=== PATIENT | female | born 1995 | race Two or more races ===

== ENCOUNTER 2019-12-25 13:44 | Inpatient (IN) | payer MEDICAID ==
[2019-12-25 14:33] LABS: APPEARANCE,URINE CLEAR; BILIRUBIN,URINE NEGATIVE (NEGATIVE); COLOR,URINE YELLOW; GLUCOSE, URINE NEGATIVE (NEGATIVE); KETONES,URINE NEGATIVE (NEGATIVE); LEUKOCYTE ESTERASE,URINE NEGATIVE (NEGATIVE); NITRITE,URINE NEGATIVE (NEGATIVE); PROTEIN,URINE 30 mg/dL (NEGATIVE); URINE SPECIFIC GRAVITY 1.016; UROBILINOGEN,URINE NEGATIVE mg/dL (<2.0)
[2019-12-25] MEDS ORDERED: RINGERS SOLUTION,LACTATED 1,000 ML IV ONE (14:36)
[2019-12-25] MEDS ORDERED: ONDANSETRON HCL INJ/PF 4 MG/2 ML SDV ONE ×2 (14:36→15:10)
[2019-12-25] MEDS ORDERED: NORMAL SALINE 250 ML IV PRN ×2 (14:39)
[2019-12-25 14:44] LABS: ABSOLUTE EOSINOPHILS # (AUTO) 0.2 10^3/uL (0.0-0.6); ABSOLUTE LYMPHOCYTES (AUTO) 1.9 10^3/uL (0.5-4.7); ABSOLUTE MONOCYTES (AUTO) 0.4 10^3/uL (0.1-1.4); ABSOLUTE NEUT (AUTO) 5.7 10^3/uL (1.7-8.2); BASOPHILS % (AUTO) 0.4 % (0-2); EOSINOPHILS % (AUTO) 1.9 % (0-6); HEMOGLOBIN 11.3 g/dL (12.0-15.5); LYMPHOCYTES % (AUTO) 22.8 % (13-45); MEAN CORPUSCULAR HEMOGLOBIN 29.5 pg (27.0-33.4); MEAN CORPUSCULAR HGB CONC 35.2 g/dL (32.0-36.0); MEAN CORPUSCULAR VOLUME 84 fl (80-97); MONOCYTES % (AUTO) 4.7 % (3-13); PLATELET COUNT 194 10^3/uL (150-450); RED BLOOD COUNT 3.82 10^6/uL (3.72-5.28); RED CELL DISTRIBUTION WIDTH 15.1 % (11.5-14.0); SEGMENTED NEUTROPHILS % (AUTO) 70.2 % (42-78); TOTAL CELLS COUNTED % (AUTO) 100 %; WHITE BLOOD COUNT 8.1 10^3/uL (4.0-10.5)
[2019-12-25 14:50] LABS: INTERNATIONAL RATION (INR) 0.95; PROTHROMBIN TIME 12.9 SEC (11.4-15.4)
[2019-12-25 14:51] LABS: FIBRINOGEN 470 mg/dL (209-497); PARTIAL THROMBOPLASTIN TIME 28.5 SEC (23.5-35.8)
[2019-12-25 14:55] LABS: URINE AMPHETAMINES SCREEN NEGATIVE; URINE BARBITURATES SCREEN NEGATIVE; URINE BENZODIAZEPINES SCREEN NEGATIVE; URINE COCAINE SCREEN NEGATIVE; URINE METHADONE SCREEN NEGATIVE; URINE PHENCYCLIDINE SCREEN NEGATIVE
[2019-12-25] MEDS ORDERED: AZITHROMYCIN 500 MG in DEXTROSE 5%-WATER 250 ML IV PRN (14:55)
[2019-12-25] MEDS ORDERED: CITRIC ACID/SODIUM CITRATE ORAL SOLN 15 ML UDCUP ONE (14:55)
[2019-12-25] MEDS ORDERED: AZITHROMYCIN INJ 500 MG VIAL IV ONE (14:56)
[2019-12-25] MEDS ORDERED: MISOPROSTOL 0.2 MG TABLET ONE (14:57)
[2019-12-25] MEDS ORDERED: METHYLERGONOVINE MALEATE INJ/PF 0.2 MG/1 ML AMPULE ONE (14:57)
[2019-12-25] MEDS ORDERED: CARBOPROST TROMETHAMINE INJ 250 MCG/1 ML AMPULE ONE (14:58)
[2019-12-25] MEDS ORDERED: ONDANSETRON HCL INJ/PF 4 MG/2 ML SDV IV ONE (14:58)
[2019-12-25] MEDS ORDERED: BETAMET ACET/BETAMET NA INJ 6 MG/1 ML ONE (15:04)
--- NOTE | 2019-12-25 15:04 | RADIOLOGY REPORT (SQ) ---
EXAM DESCRIPTION: U/S OB LIMITED IMAGES COMPLETED DATE/TIME: 12/25/2019 2:41 pm REASON FOR STUDY: placenta well being r/o abruption COMPARISON: None. TECHNIQUE: Limited transabdominal grayscale ultrasound for evaluation of specific requested obstetri kaitlynn parameters. LIMITATIONS: None. FINDINGS: CERVICAL LENGTH: Not measured. SAPNA: Not measured. Cm. FHR: 137 beats per minute. PRESENTATION: Cephalic. PLACENTA: Placenta is anterior. There is an oval area of slightly increased echogenicity along the a nterior margin of the placenta that measures about 2 x 6 cm. ANATOMY: Not assessed OTHER: No other significant findings. IMPRESSION: Living intrauterine gestation. There is an area of slightly increased echogenicity georgie g the anterior margin of the placenta. It is possible that this represents a mature hematoma from an abruption. Follow-up as clinically indicated. Trimester of : Third trimester - 28 weeks to delivery. TECHNICAL DOCUMENTATION: JOB ID: [id number] 2010 [employer]- All Rights Reserved Reading location - IP/workstation name: [email or web address]
--- NOTE | 2019-12-25 15:07 | L&D Progress Notes ---
PROGRESS NOTES Datetime Report Generated by CPN: 12/25/2019 15:07 PROGRESS NOTE Comment: US shows an abruption on ultrasound. This was discussed with the patient and family. We will need to proceed with a c section. Discussed with Dr Nicole. LAST VAGINAL EXAM-NURSING Nursing Exam Dilitation: closed Nursing Exam Effacement: long SIGNATURE SIGNATURE: [id number] Signature: with User ID: [email or web address]
[2019-12-25 15:08] LABS: URINE MARIJUANA (THC) SCREEN UNCONFIRMED POSITIVE
[2019-12-25] MEDS ORDERED: FENTANYL CITRATE INJ/PF 100 MCG/2 ML AMPUL ONE (15:09)
[2019-12-25] MEDS ORDERED: OXYTOCIN 10 UNIT/ML VIAL ONE ×2 (15:09→15:45)
[2019-12-25] MEDS ORDERED: KETOROLAC TROMETHAMINE INJ/PF 30 MG/1 ML SDV ONE ×2 (15:09→21:31)
[2019-12-25] MEDS ORDERED: PHENYLEPHRINE HCL INJ/PF 10 MG/1 ML SDV ONE (15:09)
[2019-12-25] MEDS ORDERED: OXYTOCIN/0.9 % SODIUM CHLORIDE 30 UNIT/500 ML RTUINJ ONE (15:10)
[2019-12-25] MEDS ORDERED: MIDAZOLAM 2 MG/2 ML INJ ONE ×2 (15:10→17:17)
[2019-12-25] MEDS ORDERED: ACETAMINOPHEN 1,000 MG/100 ML RTUPB IV ONE (15:10)
[2019-12-25 15:14] LABS: BACTERIA (WET MOUNT) 4+ BACTERIA SEEN; EPITHELIALS (WET MOUNT) 3+ EPITHELIALS SEEN; RBCS (WET MOUNT) 1+ RBCS SEEN; T.VAGINALIS (WET MOUNT) NO TRICHOMONAS SEEN; WBCS (WET MOUNT) 4+ WBCS SEEN; YEAST (WET MOUNT) NO YEAST SEEN
[2019-12-25] MEDS ORDERED: BETAMET ACET/BETAMET NA INJ 6 MG/1 ML IM ONE (15:15)
[2019-12-25] MEDS ORDERED: CLINDAMYCIN 900 MG/D5W RTU 900 MG/50 ML RTUPB IV ONE (15:27)
[2019-12-25] MEDS ORDERED: MISOPROSTOL 0.2 MG TABLET PR ONE (15:37)
[2019-12-25 16:11] LABS: ALBUMIN 3.2 g/dL (3.5-5.0); ALKALINE PHOSPHATASE 137 U/L (38-126); ANION GAP 8 (5-19); ASPARTATE AMINO TRANSFERASE 20 U/L (14-36); BILIRUBIN,DIRECT 0.2 mg/dL (0.0-0.4); BILIRUBIN,TOTAL 0.4 mg/dL (0.2-1.3); BLOOD UREA NITROGEN 4 mg/dL (7-20); CARBON DIOXIDE 22 mmol/L (22-30); CHLORIDE 106 mmol/L (98-107); GLUCOSE 87 mg/dL (75-110); POTASSIUM 3.8 mmol/L (3.6-5.0); TOTAL PROTEIN 5.9 g/dL (6.3-8.2); URIC ACID 3.7 mg/dL (2.5-6.2)
[2019-12-25 16:23] LABS: UR PRO/CREAT RATIO RESULT 0.1 mg/mg (0.0-0.2); URINE CREATININE 156.6 mg/dL (16-327); URINE PROTEIN 9.3 mg/dL (<12)
[2019-12-25] MEDS ORDERED: OXYTOCIN/0.9 % SODIUM CHLORIDE 30 UNIT/500 ML RTUINJ IV PRN (16:27)
[2019-12-25] MEDS ORDERED: DIPH/PERTUSS(ACELL)/TETANUS VAC/PF 0.5 ML SYR (>=10YO) IM PRN (16:27)
[2019-12-25] MEDS ORDERED: ACETAMINOPHEN 325 MG TABLET PO PRN (16:27)
[2019-12-25] MEDS ORDERED: ACETAMINOPHEN 1,000 MG/100 ML RTUPB IV PRN (16:27)
[2019-12-25] MEDS ORDERED: SIMETHICONE 80 MG TAB.CHEW PO PRN (16:27)
[2019-12-25] MEDS ORDERED: MEASLES,MUMPS&RUBELLA VACC/PF 0.5 ML VIAL SUBCUT PRN (16:27)
[2019-12-25] MEDS ORDERED: RINGERS SOLUTION,LACTATED 1,000 ML IV PRN (16:27)
[2019-12-25 16:41] LABS: CHLAM PCR NOT DETECTED (NOT DETECT)
[2019-12-25] MEDS ORDERED: MEPERIDINE HCL/PF INJ 25 MG/1 ML DISP.SYRIN ONE (16:48)
[2019-12-25] MEDS ORDERED: MAGNESIUM SULFATE 20 GM/500 ML RTUINJ IV PRN (17:00)
[2019-12-25] MEDS ORDERED: MAGNESIUM SULFATE 4 GM/100 ML RTUPB IV PRN (17:00)
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
[2019-12-25] MEDS ORDERED: LORAZEPAM INJ 2 MG/1 ML VIAL ONE (17:09)
[2019-12-25] MEDS ORDERED: LORAZEPAM INJ 2 MG/1 ML VIAL IV ONE (17:11)
[2019-12-25] MEDS ORDERED: MAGNESIUM SULFATE 20 GM/500 ML RTUINJ IV ONE (17:11)
[2019-12-25] MEDS ORDERED: MAGNESIUM SULFATE 4 GM/100 ML RTUPB IV ONE ×2 (17:11)
[2019-12-25 17:47] LABS: ABSOLUTE EOSINOPHILS # (AUTO) 0.1 10^3/uL (0.0-0.6); ABSOLUTE LYMPHOCYTES (AUTO) 1.2 10^3/uL (0.5-4.7); ABSOLUTE MONOCYTES (AUTO) 0.2 10^3/uL (0.1-1.4); ABSOLUTE NEUT (AUTO) 6.6 10^3/uL (1.7-8.2); BASOPHILS % (AUTO) 0.3 % (0-2); EOSINOPHILS % (AUTO) 0.9 % (0-6); HEMATOCRIT 30.9 % (36.0-47.0); HEMOGLOBIN 10.7 g/dL (12.0-15.5); LYMPHOCYTES % (AUTO) 14.8 % (13-45); MEAN CORPUSCULAR HEMOGLOBIN 29.3 pg (27.0-33.4); MEAN CORPUSCULAR HGB CONC 34.7 g/dL (32.0-36.0); MEAN CORPUSCULAR VOLUME 84 fl (80-97); MONOCYTES % (AUTO) 2.1 % (3-13); PLATELET COUNT 179 10^3/uL (150-450); RED BLOOD COUNT 3.67 10^6/uL (3.72-5.28); RED CELL DISTRIBUTION WIDTH 14.8 % (11.5-14.0); SEGMENTED NEUTROPHILS % (AUTO) 81.9 % (42-78); TOTAL CELLS COUNTED % (AUTO) 100 %; WHITE BLOOD COUNT 8.1 10^3/uL (4.0-10.5)
[2019-12-25 17:54] LABS: INTERNATIONAL RATION (INR) 1.04; PROTHROMBIN TIME 13.8 SEC (11.4-15.4)
[2019-12-25 17:55] LABS: FIBRINOGEN 425 mg/dL (209-497); PARTIAL THROMBOPLASTIN TIME 29.2 SEC (23.5-35.8)
--- NOTE | 2019-12-25 18:00 | Operative Report ---
Operative Report DATE OF SURGERY: 12/25/19 PREOPERATIVE DIAGNOSIS: 31+6ega, , Abdominal pain, Abruption, Vaginal Bl eeding. POSTOPERATIVE DIAGNOSIS: DINO - abruption OPERATION: Primary Section SURGEON: MANUELA FREEMAN ANESTHESIA: Spinal TISSUE REMOVED OR ALTERED: placenta and cord sent to pathology COMPLICATIONS: Uterine atony resolved with Pitocin and Cytotec ESTIMATED BLOOD LOSS: 800 QUANTITATIVE BLOOD LOSS: 940 INTRAOPERATIVE FINDINGS: Baby FINA delivered at 1536, APgars 8/9, weight 4#. Copious amounts of bleeding noted at uterine incision consistent with abruption. Uterine atony resolved after additional Dose of Pitocin. Cytotec 1000mcg given per rectum. PROCEDURE: Anesthesia provider: [Jacqueline Brown BUILDING SERVICES COORDINATOR] Urine output: [150ml] IV fluids: [800ml] Indications: [24yo at 31+6ega presents via EMS from [facility] appointment to transfer care from [place]. Upon arrival patient not to have gushes of blood with reassuring FHR for gestational age and was assessed by Dr. Akers and US obtained which showed active abruption. She was consented for Urgent Primary section due to abruption and NICU team was notified. The risks, benefits, alternatives wre reviewed. No e/o HTN and PIH labs within normal limits. ] Procedure: The patient was taken to the operating room where spinal anesthesia was obtained and found to be adequate. She was then prepped and draped in the normal sterile fashion and placed in the dorsal supine position with a leftward tilt. A Pfannenstiel skin incision was then made and carried through to the underlying layers of the fascia with the scalpel. The fascia was incised in the midline and the incision extended laterally with the Arndt scissors. The superior aspect of the fascial incision was then grasped with Tino clamps elevated and the underlying rectus muscles dissected off [bluntly]. Attention was then turned to the inferior aspect of the fascial incision which in a similar fashion was grasped, tented up with Tino clamps, and the rectus muscles dissected off [bluntly]. The rectus muscles were then in the midline and the peritoneum at the amount identified and entered [bluntly]. The peritoneal incision was then extended superiorly and inferiorly with good visualization of the bladder. The bladder blade was inserted and the vesicouterine peritoneum identified grasped with [employer] pickups and entered sharply with the Metzenbaum scissors. This incision was then extended laterally with the Metzenbaum scissors and a bladder flap created digitally. The bladder blade was then reinserted and the lower uterine segment incised in a transverse fashion with the scalpel. The uterine incision was then extended bluntly. Copious bleeding noted prior to the baby and spontaneous delivery of baby and quick delivery of placenta followed shortly. The bladder blade was removed and the infant's head was delivered from cephalic presentation atraumatically. The nose and mouth were suctioned and the cord doubly clamped and cut. And the infant was handed off to waiting pediatricic staff. The placenta was then delivered spontaneously and the uterus exteriorized and cleared of all clots and debris. The uterine incision was then repaired with 1- 0 Vicryl in a running locked fashion. A second layer of the same suture was used to obtain hemostasis via imbrication of the initial layer. The bladder flap was then repaired with 3-0 chromic in a running fashion. The uterus was returned to the patient's abdomen and Surgicel placed for additional hemostasis. The gutters were cleared of all clots and debris. All operative sites were noted to be hemostatic. The fascia was reapproximated with 0 Vicryl in a running fashion from each lateral edge to the midline. The skin was closed with 3-0 Monocryl in a running subcuticular fashion with overlying Exofin for additional dressing as well as wound closure. The patient tolerated the procedure well. Sponge lap needle and instrument counts are correct times 2. Zithromax and 900mg of Clindamycin were given prior to skin incision. The patient was taken to the recovery area awake and in stable condition.
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
[2019-12-25 18:12] LABS: ALBUMIN 2.9 g/dL (3.5-5.0); ALKALINE PHOSPHATASE 128 U/L (38-126); ANION GAP 7 (5-19); ASPARTATE AMINO TRANSFERASE 21 U/L (14-36); BILIRUBIN,DIRECT 0.2 mg/dL (0.0-0.4); BILIRUBIN,TOTAL 0.4 mg/dL (0.2-1.3); BLOOD UREA NITROGEN 4 mg/dL (7-20); CALCIUM 8.3 mg/dL (8.4-10.2); CARBON DIOXIDE 22 mmol/L (22-30); CHLORIDE 104 mmol/L (98-107); POTASSIUM 4.3 mmol/L (3.6-5.0); TOTAL PROTEIN 5.3 g/dL (6.3-8.2)
[2019-12-25 18:19] LABS: GLUCOSE 66 mg/dL (75-110)
--- NOTE | 2019-12-25 18:21 | RADIOLOGY REPORT (SQ) ---
EXAM DESCRIPTION: CT HEAD WITHOUT IMAGES COMPLETED DATE/TIME: 12/25/2019 6:05 pm REASON FOR STUDY: blurred vision, headache, loss of responsiveness COMPARISON: None. TECHNIQUE: Axial images acquired through the brain without intravenous contrast. Images reviewed wi th bone, brain and subdural windows. Additional sagittal and coronal reconstructions were generated. Images stored on PACS. All CT scanners at this facility use dose modulation, iterative reconstruction, and/or weight based d osing when appropriate to reduce radiation dose to as low as reasonably achievable (ALARA). [facility]: Dose Right [facility]: CareDose [facility]: Dose Right [facility]: Teradose 4D [facility]: Boastify RADIATION DOSE: CT Rad equipment meets quality standard of care and radiation dose reduction techniq ues were employed. CTDIvol: 53.2 mGy. DLP: 937 mGy-cm. mGy. LIMITATIONS: None. FINDINGS: VENTRICLES: Normal size and contour. CEREBRUM: No masses. No hemorrhage. No midline shift. No evidence for acute infarction. Normal gra y/white matter differentiation. No areas of low density in the white matter. CEREBELLUM: No masses. No hemorrhage. No alteration of density. No evidence for acute infarction. EXTRAAXIAL SPACES: No fluid collections. No masses. ORBITS AND GLOBE: No intra- or extraconal masses. Normal contour of globe without masses. CALVARIUM: No fracture. PARANASAL SINUSES: No fluid or mucosal thickening. SOFT TISSUES: No mass or hematoma. OTHER: No other significant finding. IMPRESSION: NORMAL BRAIN CT WITHOUT CONTRAST. EVIDENCE OF ACUTE STROKE: NO. COMMENT: Quality ID # [id number]: Final reports with documentation of one or more dose reduction techniques (e.g., Automated exposure control, adjustment of the mA and/or kV according to patient size, use of iterative reconstruction technique) TECHNICAL DOCUMENTATION: JOB ID: [id number] 2010 [employer]- All Rights Reserved Reading location - IP/workstation name: [email or web address]
[2019-12-25] MEDS ORDERED: HYDROMORPHONE HCL INJ/PF 2 MG/ML AMPULE ONE (18:30)
[2019-12-25] MEDS: HYDROMORPHONE HCL INJ/PF 2 MG/ML AMPULE IV PRN (18:33)
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
--- NOTE | 2019-12-25 19:10 | Warning Signs in Babies ---
VOD Warning Signs Datetime Report Generated by [facility]: 12/25/2019 19:10 VOD#608 -Warning Signs in Babies: Needs to be viewed. (12/25/2019 13:51:Calista Turner RN)
[2019-12-25] MEDS: DOCUSATE SODIUM 100 MG CAPSULE PO SCH (19:27)
[2019-12-25] MEDS: LEVETIRACETAM 500 MG TABLET PO SCH (20:04)
[2019-12-25] MEDS: OXYCODONE-ACETAMINOPHEN 5-325 MG TABLET PO PRN (20:10)
[2019-12-25] MEDS ORDERED: OXYCODONE-ACETAMINOPHEN 5-325 MG TABLET ONE (20:10)
[2019-12-25] MEDS ORDERED: PROMETHAZINE HCL INJ 25 MG/1 ML VIAL ONE (20:17)
[2019-12-25] MEDS: PROMETHAZINE HCL INJ 25 MG/1 ML VIAL IV PRN (20:23)
[2019-12-25] MEDS: LIDOCAINE 5% (700 MG) TRANSDERMAL ADH..PATCH TP SCH (21:08)
[2019-12-25] MEDS: KETOROLAC TROMETHAMINE INJ/PF 30 MG/1 ML SDV IV SCH (21:35)
[2019-12-26] MEDS ORDERED: HYDROMORPHONE HCL INJ/PF 2 MG/ML AMPULE ONE (01:09)
[2019-12-26] MEDS: HYDROMORPHONE HCL INJ/PF 2 MG/ML AMPULE IV PRN (01:12)
[2019-12-26] MEDS ORDERED: OXYCODONE-ACETAMINOPHEN 5-325 MG TABLET ONE ×2 (04:22→09:37)
[2019-12-26] MEDS: IBUPROFEN 800 MG TABLET PO SCH ×4 (04:24→17:50)
[2019-12-26] MEDS: OXYCODONE-ACETAMINOPHEN 5-325 MG TABLET PO PRN ×2 (04:25→21:12)
[2019-12-26] MEDS ORDERED: MAGNESIUM SULFATE 4 GM/100 ML RTUPB IV PRN (05:27)
[2019-12-26] MEDS ORDERED: PROMETHAZINE HCL INJ 25 MG/1 ML VIAL ONE (06:23)
[2019-12-26] MEDS ORDERED: KETOROLAC TROMETHAMINE INJ/PF 30 MG/1 ML SDV ONE (06:23)
[2019-12-26] MEDS: KETOROLAC TROMETHAMINE INJ/PF 30 MG/1 ML SDV IV SCH ×2 (06:29→16:47)
[2019-12-26] MEDS: PROMETHAZINE HCL INJ 25 MG/1 ML VIAL IV PRN (06:30)
[2019-12-26 07:41] LABS: HEMATOCRIT 31.1 % (36.0-47.0); HEMOGLOBIN 10.9 g/dL (12.0-15.5); MEAN CORPUSCULAR HEMOGLOBIN 29.4 pg (27.0-33.4); MEAN CORPUSCULAR VOLUME 84 fl (80-97); PLATELET COUNT 192 10^3/uL (150-450); RED CELL DISTRIBUTION WIDTH 14.9 % (11.5-14.0); WHITE BLOOD COUNT 14.3 10^3/uL (4.0-10.5)
--- NOTE | 2019-12-26 08:26 | Birth Certificate Data ---
Cert Data Datetime Report Generated by CPN: 12/26/2019 08:26 CERTIFICATE DATA 47a. Care: Yes (12/25/2019 13:51:Lexus Nicole RN) 47b. Date of First Visit: 06/25/2019 00:00 (12/25/2019 13:51:Lexus Nicole RN) 47c. Date of Last Visit: 12/01/2019 00:00 (12/25/2019 13:51:Lexus Nicole RN) 47d. Number of Visits: 3 (12/25/2019 13:51:Lexus Nicole RN) 48a. Number of Prev Live Births: 4 (12/25/2019 13:51:Calista Turner RN) 48b. Now Livin (12/25/2019 13:51:Calista Turner RN) 48c. Live Births Now : 0 (12/25/2019 13:51:QS system process) 48e. Losses: 1 (12/25/2019 13:51:Calista Turner RN) RISK FACTORS IN THIS 49a. Diabetes: Yes (12/25/2019 13:51:Calista Turner RN) Type of Diabetes: Gestational Diabetes (12/25/2019 13:51:Calista Turner RN) 49b. Hypertension: Yes (12/25/2019 13:51:Calista Turner RN) Type of Hypertension: Gestational (PIH, Pre-eclampsia) (12/25/2019 13:51:Calista Turner RN) 49c. Previous Births: 0 (12/25/2019 13:51:Calista Turner RN) 49d. Stillborns: No (12/25/2019 13:51:Calista Turner RN) 49d. IUGR: No (12/25/2019 13:51:Calista Turner RN) 49e. Infertility Treatment: No (12/25/2019 13:51:Calista Turner RN) 49f. Previous Cesareans: 0 (12/25/2019 13:51:Calista Turner RN) Mother's Height 50b. Height Inches: 64 (12/25/2019 20:31:QS system process) Mother's Weight 51a. Pre- Weight (lbs): 256 (12/25/2019 13:51:Calista Turner RN) 51b. Weight at Delivery (lbs): 207 (12/25/2019 20:31:QS system process) 52. Dt Last Normal Menses Began: 05/16/2019 00:00 (12/25/2019 13:51:Lexus Nicole RN) Infections Present/Treated 53a. Gonorrhea: Yes (12/25/2019 13:51:Lexus Nicole RN) Results this Hospital Visit : Negative (12/25/2019 13:51:Jessenia Lucio RN) 53b. Syphilis: No (12/25/2019 13:51:Calista Turner RN) 53c. Chlamydia: Yes (12/25/2019 13:51:Calista Turner RN) Results this Hospital Visit: Negative (12/25/2019 13:51:Jessenia Lucio RN) 53d. Hepatitis B: No (12/25/2019 13:51:Calista Turner RN) Results this Hospital Visit: Negative (12/25/2019 13:51:Jessenia Lucio RN) 53h. Mother Tested for HBsAG: Yes (12/25/2019 13:51:Jessenia Lucio RN) 53i. Date Tested: 12/01/2019 00:00 (12/25/2019 13:51:Jessenia Lucio RN) 53j. Test Result: Negative (12/25/2019 13:51:Jessenia Lucio RN) Obstetric Procedures 54a, b, c. Obstetric Procedures: Ultrasound (12/25/2019 13:51:Lexus Nicole RN) Cigarette Smoking Cigarette Smoking: Never Smoker. [id number] (12/25/2019 13:51:Calista Turner RN) Onset of Labor 56a. PROM >12 Hrs: 0.02 (12/25/2019 13:51:QS system process) 57a. Induction of Labor: N/A (12/25/2019 13:51:Lexus Nicole RN) 57c. Non-Vertex Presentation A: Vertex (12/25/2019 13:51:Lexus Nicole RN) 57d. Steroids - Lung Mat: Partial Course (12/25/2019 13:51:Lexus Nicole RN) 57d. Steroids - Lung Mat: Imminent Delivery (12/25/2019 13:51:Lexus Nicole RN) 57e. Antibiotics During Labor: 12/25/2019 15:03 (12/25/2019 13:51:Hong Huang RN) 57f. Mat [place] or Temp >100.4: 98.7 (Annotations: Data stored by [employer] on behalf of user) (12/25/2019 13:51:Jessenia Lucio RN) 57g. Moderate/Heavy Meconium: Clear (12/25/2019 13:51:Hong Huang RN) 57h. Intolerance of Labor: Abruptio Placenta (12/25/2019 13:51:Lexus Nicole RN) : N/A (12/25/2019 13:51:Lexus Nicole RN) 57i. Epidural/Spinal Anesthesia: None (12/25/2019 13:51:Lexus Nicole RN) Method of Delivery 58a. Forceps - Unsuccessful A: N/A (12/25/2019 13:51:Lexus Nicole RN) 58b. Vacuum - Unsuccessful A: N/A (12/25/2019 13:51:Lexus Nicole RN) 58c. Presentation at 58c. Presentation at - A : Vertex (12/25/2019 13:51:Lexus Nicole RN) 58c. Presentation at - A : N/A (12/25/2019 13:51:Lexus Nicole RN) 58c. Presentation at - A : Cephalic (12/25/2019 13:51:Lexus Nicole RN) Final Route and Method of Del 58d. Baby A Route/Delivery: (12/25/2019 13:51:Lexus Nicole RN) 58e. Trial of Labor Attempted: No (12/25/2019 13:51:Lexus Nicole RN) 58e. Trial of Labor Attempted A: N/A (12/25/2019 13:51:Lexus Nicole RN) 58e. Trial of Labor Attempted B: N/A (12/25/2019 13:51:Lexus Nicole RN) Maternal Morbidity 59b. 3rd or 4th Degree Lacs: None (12/25/2019 13:51:Lexus Nicole RN) 59b. 3rd or 4th Degree Lacs: N/A (12/25/2019 13:51:Lexus Nicole RN) Birthweight Baby A: 1809 (12/25/2019 13:51:Hong Huang RN) 60a. Pounds : 4 (12/25/2019 13:51:QS system process) 60b. Ounces: 0 (12/25/2019 13:51:QS system process) 61. GA at Delivery Baby A: 31.6 (12/25/2019 13:51:Lexus Nicole RN) : - <34 Weeks (12/25/2019 13:51:QS system process) 62a. 5 Minute Baby A: 9 (12/25/2019 13:51:QS system process)
--- NOTE | 2019-12-26 08:26 | Delivery Summary ---
Del Sum A-C Datetime Report Generated by CPN: 12/26/2019 08:26 DELIVERY PERSONNEL DELIVERY PERSONNEL: [id number] Delivery Doctor:: Alondra Alicea MD Anesthesiologist:: Dr. Soler AIRLINE COUNTER AGENT:: Jacqueline Lovett CRNA Slip Mixer:: Calista Turner RN Neonatal Nurse Practitioner:: KASIA Costa Nursery Nurse:: Babita August RN Nursery Nurse:: Mercedez Shepherd RN Can Doffer/INFORMATION STRATEGIST: ST Russel Can Doffer/INFORMATION STRATEGIST: Ayanna Carrasquillo CST Additional Personnel: : Hong Huang RN MATERNAL INFORMATION Delivery Anesthesia: Spinal Medications After Delivery: Pitocin 30 Units in 500ml NS/D5W; Cytotec 1000mcg Per Rectum/Vagina Meds After Delivery Comment: cytotec 1000mcg pr Delivery QBL: 940 Maternal Complications: Abruptio Placenta LABOR SUMMARY EDC: 02/20/2020 00:00 No. Babies in Womb: 1 Attempted: No Labor Anesthesia: None LABOR INFORMATION Reason for Induction: Not Applicable Oxytocin: N/A Group B Beta Strep: unknown (Annotations: Data stored by [facility] on behalf of user) Antibiotics # of Doses: 2 Antibiotics Time of Last Dose: 12/25/2019 15:03 Name of Antibiotic Given: Zithromax and Cleocin Steroids Given: Partial Course Reason Steroids Not Administered: Imminent Delivery MEMBRANES Membranes Rupture Method: Artificial Rupture of Membranes: 12/25/2019 15:35 Length of Rupture (hr): 0.02 Amniotic Fluid Color: Clear Amniotic Fluid Amount: Moderate Amniotic Fluid Odor: Normal STAGES OF LABOR Stage 3 hr: 0 Stage 3 min: 1 VAGINAL DELIVERY Episiotomy: None Laceration #1: None Laceration Extension #1: N/A Laceration Repair: Not Applicable Sponge Count Correct: N/A Sharps Count Correct: N/A CSECTION DELIVERY Primary Indication: Abruptio Placenta Secondary Indication: N/A CSection Urgency: Emergency CSection Incidence: Primary Labor: N/A Elective: Nonelective CSection Incision: Lower Uterine Transverse BABY A INFORMATION Infant Delivery Date/Time: 12/25/2019 15:36 Method of Delivery: Nurse Controlled Delivery: No Born in Route : No : N/A Forceps: N/A Vacuum Extraction: N/A Shoulder Dystocia : No PRESENTATION/POSITION BABY A Presentation: Cephalic Cephalic Presentation: Vertex Breech Presentation: N/A PLACENTA INFORMATION BABY A Placenta Delivery Time : 12/25/2019 15:37 Placenta Method of Delivery: Manual Removal Placenta Status: Delivered SCORES BABY A Heart Rate 1 min: >100 bpm Resp Effort 1 min: Good Cry Reflex Irritability 1 min: Cough or Sneeze or Pulls Away Muscle Tone 1 min: Active Motion Color 1 min: Blue/Pale Resuscitation Effort 1 min: Tactile Stimulation SCORE 1 MIN: 8 Heart Rate 5 min: >100 bpm Resp Effort 5 min: Good Cry Reflex Irritability 5 min: Cough or Sneeze or Pulls Away Muscle Tone 5 min: Active Motion Color 5 min: Body [place], Extremities Blue Resuscitation Effort 5 min: N/A SCORE 5 MIN: 9 INFORMATION BABY A Gestational Age at Delivery: 31.6 Gestational Status: - <34 Weeks Outcome : Liveborn Condition : Stable Infant Sex: Male IDENTIFICATION BABY A Verification Date/Time: 12/25/2019 15:37 ID Band Number: [id number] Mother's Name Verified: Yes Infant RN Verifying : CSedgwick,RN Additional Verifying Personnel: TMartin,RN WEIGHT/LENGTH BABY A Birthweight (gm): 1809 Infant Weight (lb): 4 Weight (oz): 0 Infant Length (in): 17.00 Length (cm): 43.18 CORD INFORMATION BABY A No. Cord Vessels: 3 Nuchal Cord : N/A Cord Blood Taken: Yes-For Eval (Mom's Blood Type - or O+) Infant Suction: Mouth; Nose ASSESSMENT BABY A Skin to Skin: No Skin to Skin Time (min): 0 Casino Floorperson/ALS Called : Yes Infant Care By: A [place], RN Transferred To: NICU BABY B INFORMATION : N/A SIGNATURES : I was personally available for consultation and serving as supervising physician for the MLP.
--- NOTE | 2019-12-26 09:45 | PDOC PROGRESS REPORT ---
Subjective Progress Note for:: 12/26/19 Subjective:: Patient is doing very well. Ambulating without difficulty. Pain well controlled. She has had no further episodes of her pseudo-seizure like activity. Reason For Visit: ABRUPTION Physical Exam - Physical Exam Vital Signs: Intake & Output 12/25/19 12/26/19 12/27/19 06:59 06:59 06:59 Weight 94.347 kg General appearance: PRESENT: no acute distress, cooperative GI/Abdominal exam: PRESENT: soft, tenderness - appropriate for post operative state. Incision c/d/intact Result Laboratory Results: 12/26/19 07:26 12/25/19 17:40 12/25/19 12/25/19 12/25/19 14:16 14:37 14:37 WBC 8.1 RBC 3.82 Hgb 11.3 L Hct 32.0 L MCV 84 MCH 29.5 MCHC 35.2 RDW 15.1 H Plt Count 194 Seg Neutrophils % 70.2 Sodium Potassium Chloride Carbon Dioxide Anion Gap BUN Creatinine Est GFR ( Amer) Glucose Uric Acid Calcium Total Bilirubin AST Alkaline Phosphatase Total Protein Albumin TSH Urine Color YELLOW Urine Appearance CLEAR Urine pH 7.0 Ur Specific [place] 1.016 Urine Protein 30 H Urine Glucose (UA) NEGATIVE Urine Ketones NEGATIVE Urine Blood NEGATIVE Urine Nitrite NEGATIVE Ur Leukocyte Esterase NEGATIVE Urine WBC (Auto) 1 Urine RBC (Auto) 7 Blood Type O POSITIVE Antibody Screen NEGATIVE 12/25/19 12/25/19 12/25/19 14:57 16:36 17:40 WBC 8.1 RBC 3.67 L Hgb 10.7 L Hct 30.9 L MCV 84 MCH 29.3 MCHC 34.7 RDW 14.8 H Plt Count 179 Seg Neutrophils % 81.9 H Sodium 136.0 L Potassium 3.8 Chloride 106 Carbon Dioxide 22 Anion Gap 8 BUN 4 L Creatinine 0.46 L Est GFR ( Amer) > 60 Glucose 87 Uric Acid 3.7 Calcium 9.0 Total Bilirubin 0.4 AST 20 Alkaline Phosphatase 137 H Total Protein 5.9 L Albumin 3.2 L TSH 0.54 Urine Color Urine Appearance Urine pH Ur Specific [place] Urine Protein Urine Glucose (UA) Urine Ketones Urine Blood Urine Nitrite Ur Leukocyte Esterase Urine WBC (Auto) Urine RBC (Auto) Blood Type Antibody Screen 12/25/19 12/26/19 17:40 07:26 WBC 14.3 H RBC 3.70 L Hgb 10.9 L Hct 31.1 L MCV 84 MCH 29.4 MCHC 35.0 RDW 14.9 H Plt Count 192 Seg Neutrophils % Sodium 133.1 L Potassium 4.3 Chloride 104 Carbon Dioxide 22 Anion Gap 7 BUN 4 L Creatinine 0.47 L Est GFR ( Amer) > 60 Glucose 66 L Uric Acid Calcium 8.3 L Total Bilirubin 0.4 AST 21 Alkaline Phosphatase 128 H Total Protein 5.3 L Albumin 2.9 L TSH Urine Color Urine Appearance Urine pH Ur Specific [place] Urine Protein Urine Glucose (UA) Urine Ketones Urine Blood Urine Nitrite Ur Leukocyte Esterase Urine WBC (Auto) Urine RBC (Auto) Blood Type Antibody Screen Impressions: Obstetrics Ultrasound 12/25/19 00:00 IMPRESSION: Living intrauterine gestation. There is an area of slightly increased echogenicity along the anterior margin of the placenta. It is possible that this represents a mature hematoma from an abruption. Follow-up as clinically indicated. Trimester of : Third trimester - [address] delivery. Head CT 12/25/19 17:05 IMPRESSION: NORMAL BRAIN CT WITHOUT CONTRAST. EVIDENCE OF ACUTE STROKE: NO. Assessment & Plan - Diagnosis (1) Asthma Qualifiers: Asthma severity: mild Is this a current diagnosis for this admission?: Yes (2) Migraine with aura Qualifiers: Status migrainosus presence: without status migrainosus Intractability: not intractable Qualified Code(s): G43.109 - Migraine with aura, not intractable, without status migrainosus Is this a current diagnosis for this admission?: Yes (3) Placenta abruption, delivered, current hospitalization Is this a current diagnosis for this admission?: Yes (4) delivery Is this a current diagnosis for this admission?: Yes - Time Time Spent with patient: Less than 15 minutes Medications reviewed and adjusted accordingly: Yes Anticipated discharge: Home Anticipated DC Timeframe: within 48 hours - Inpatient Certification Based on my medical assessment, after consideration of the patient's comorbidities, presenting symptoms, or acuity I expect that the services needed warrant INPATIENT care.: Yes I certify that my determination is in accordance with my understanding of Medicare's requirements for reasonable and necessary INPATIENT services [42 CFR 412.3e].: Yes Medical Necessity: Need Close Monitoring Due to Risk of Patient Decompensation, Need for Pain Control - Plan Summary Plan Summary: will continue with keppra for the migraines. Plan for discharge in approximately 48 hours as long as she remains stable. routine post operative care.
[2019-12-26] MEDS: LEVETIRACETAM 500 MG TABLET PO SCH ×2 (10:19→21:34)
[2019-12-26] MEDS ORDERED: DOCUSATE SODIUM 100 MG CAPSULE ONE (11:11)
[2019-12-26] MEDS ORDERED: PRENATAL VITAMIN W DHA CAPSULE PO ONE (11:11)
[2019-12-26] MEDS: PRENATAL VITAMIN W DHA CAPSULE PO SCH (11:21)
[2019-12-26] MEDS: DOCUSATE SODIUM 100 MG CAPSULE PO SCH ×2 (11:21→17:52)
[2019-12-26] MEDS: LIDOCAINE 5% (700 MG) TRANSDERMAL ADH..PATCH TP SCH ×2 (16:42→22:04)
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
[2019-12-26] MEDS ORDERED: LEVETIRACETAM 500 MG TABLET PO ONE (21:27)
[2019-12-27] MEDS: IBUPROFEN 800 MG TABLET PO SCH ×4 (00:34→17:22)
[2019-12-27] MEDS ORDERED: ALBUTEROL SULFATE HFA (90 MCG/PUFF) 8 GM MDI IH ONE (07:36)
[2019-12-27] MEDS: ALBUTEROL SULFATE HFA (90 MCG/PUFF) 8 GM MDI IH PRN (07:47)
[2019-12-27] MEDS: DOCUSATE SODIUM 100 MG CAPSULE PO SCH ×2 (09:48→17:21)
[2019-12-27] MEDS: PRENATAL VITAMIN W DHA CAPSULE PO SCH (09:49)
[2019-12-27] MEDS: OXYCODONE-ACETAMINOPHEN 5-325 MG TABLET PO PRN (10:00)
[2019-12-27] MEDS: LEVETIRACETAM 500 MG TABLET PO SCH ×2 (10:00→22:45)
--- NOTE | 2019-12-27 11:08 | PDOC PROGRESS REPORT ---
Subjective Progress Note for:: 12/27/19 Subjective:: Patient is doing very well. Ambulating without difficulty. Pain well controlled. She has had no further episodes of her pseudo-seizure like activity. Reason For Visit: ABRUPTION Patient is doing very well this AM and has no complaints. Pain is well controlled with current pain meds. She denies any headache or pseudoseizure activity. She is pumping without difficulty and seems to be on a good schedule for this. She is inquiring re: nesting room for after her discharge.. Advised her to discuss with nursing as to availability Physical Exam - Physical Exam Vital Signs: Temp Pulse Resp BP Pulse Ox 97.9 F 65 18 121/64 97 12/27/19 07:23 12/27/19 07:23 12/27/19 07:23 12/27/19 07:23 12/27/19 07:23 Intake & Output 12/26/19 12/27/19 12/28/19 06:59 06:59 06:59 Weight 94.347 kg General appearance: PRESENT: no acute distress, cooperative GI/Abdominal exam: PRESENT: soft, tenderness - appropriate for post operative state Musculoskeletal exam: PRESENT: ambulatory, full ROM Neurological exam: PRESENT: alert, awake, oriented to person, oriented to place, oriented to time Result Laboratory Results: 12/26/19 07:26 12/25/19 17:40 12/25/19 14:16 Catheterized Urine Urine Culture - Final NO GROWTH 2 DAYS 12/25/19 14:55 Vaginal/Anorectal Group B Streptococcus Culture - Final GROUP B BETA HEMOLYTIC STREPTOCOCCUS RECOVERED Impressions: Obstetrics Ultrasound 12/25/19 00:00 IMPRESSION: Living intrauterine gestation. There is an area of slightly increased echogenicity along the anterior margin of the placenta. It is possible that this represents a mature hematoma from an abruption. Follow-up as clinically indicated. Trimester of : Third trimester - 28 weeks [address]. Head CT 12/25/19 17:05 IMPRESSION: NORMAL BRAIN CT WITHOUT CONTRAST. EVIDENCE OF ACUTE STROKE: NO. Assessment & Plan - Diagnosis (1) Asthma Qualifiers: Asthma severity: mild Is this a current diagnosis for this admission?: Yes (2) Migraine with aura Qualifiers: Status migrainosus presence: without status migrainosus Intractability: not intractable Qualified Code(s): G43.109 - Migraine with aura, not intractable, without status migrainosus Is this a current diagnosis for this admission?: Yes (3) Placenta abruption, delivered, current hospitalization Is this a current diagnosis for this admission?: Yes (4) delivery Is this a current diagnosis for this admission?: Yes - Time Time Spent with patient: Less than 15 minutes Anticipated discharge: Home Anticipated DC Timeframe: within 24 hours - Plan Summary Plan Summary: Am planning on discharge in the AM as long as she continues to do well and remains stable. Nursing will discuss with her regarding the availability of a nesting room for while baby is in the NICU
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
[2019-12-28] MEDS: IBUPROFEN 800 MG TABLET PO SCH ×5 (00:09→23:58)
[2019-12-28] MEDS: LIDOCAINE 5% (700 MG) TRANSDERMAL ADH..PATCH TP SCH ×2 (00:11→21:54)
[2019-12-28] MEDS: DOCUSATE SODIUM 100 MG CAPSULE PO SCH ×2 (10:27→17:15)
[2019-12-28] MEDS: PRENATAL VITAMIN W DHA CAPSULE PO SCH (10:27)
[2019-12-28] MEDS: LEVETIRACETAM 500 MG TABLET PO SCH ×2 (10:27→22:21)
[2019-12-28 12:36] LABS: HEPATITIS C QUANTITATION HCV Not Detected IU/mL (.)
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
--- NOTE | 2019-12-28 15:31 | PDOC PROGRESS REPORT ---
Subjective-OB Progress Note for:: 12/28/19 - POD #3, pt doing well today, able to ambulate down to the NICN w/out issues. Pumping breastmilk. No c/o headaches. O+, Pumping breastmilk Physical Exam (OB) Vital Signs: Temp Pulse Resp BP Pulse Ox 97.9 F 80 18 125/77 99 12/28/19 14:16 12/28/19 14:16 12/28/19 14:16 12/28/19 14:16 12/28/19 14:16 Intake & Output 12/27/19 12/28/19 12/29/19 06:59 06:59 06:59 Intake Total 1000 600 Balance 1000 600 - General General Appearance: Appears well, Alert - PIH/Pre-Eclampsia DTR's: 1 + Clonus: Negative Headache: Absent Epigastric Pain: No Visual Changes: No - Dressing Removed: No Incision: Well Approximated Closure Type: Surgical Glue - Maternal Morbidity 59. Maternal Morbidity (serious complications experinced by the mother associated with labor and delivery: None of the above - Lochia Lochia Amount: Scant < 10 ml Lochia Color: Rubra/Red - Abdomen Description: Tender, Soft Hernia Present: No Fundal Description: Firm, Midline Fundal Height: u/u - u/2 - Respiratory Respiratory Status: No respiratory distress - Genitourinary Genitourinary Note: voiding - Extremities Upper extremity: Normal inspection Lower extremities: Normal inspection - Neurological Cognition: Normal Orientation: AAOx4 - Psychological Associated symptoms: Normal affect, Normal mood Objective-Diagnostic Laboratory: 12/26/19 07:26 12/25/19 17:40 Assessment and Plan(PN) - Assessment and Plan (1) Seizure disorder during in third trimester Is this a current diagnosis for this admission?: Yes (2) 32 weeks gestation of Is this a current diagnosis for this admission?: Yes (3) Asthma Qualifiers: Asthma severity: mild Is this a current diagnosis for this admission?: Yes (4) Migraine with aura Qualifiers: Status migrainosus presence: without status migrainosus Intractability: not intractable Qualified Code(s): G43.109 - Migraine with aura, not intractable, without status migrainosus Is this a current diagnosis for this admission?: Yes (5) Placenta abruption, delivered, current hospitalization Is this a current diagnosis for this admission?: Yes (6) delivery Is this a current diagnosis for this admission?: Yes Plan:: Pt is from [place] and does not have good family support here in [place]. She came down from [place] to take care of her grandmother who has cancer. Pt has no ride back to grandmother's home today, or anyone to get her medication from the pharmacy if patient is discharged. Plan to keep patient one more night since she needs her seizure medication and her 32 weeks baby remains in the NICU. - Time Spent with Patient Time with patient: Less than 15 minutes Medications reviewed and adjusted accordingly: Yes - Disposition Anticipated Discharge Disposition: Home, Self Care Anticipated Discharge Timeframe: within 24 hours
[2019-12-28] MEDS: OXYCODONE-ACETAMINOPHEN 5-325 MG TABLET PO PRN (22:24)
[2019-12-29] MEDS: ALBUTEROL SULFATE HFA (90 MCG/PUFF) 8 GM MDI IH PRN (04:39)
[2019-12-29] MEDS: IBUPROFEN 800 MG TABLET PO SCH ×2 (05:52→11:20)
--- NOTE | 2019-12-29 10:07 | PDOC PROGRESS REPORT ---
Subjective-OB Progress Note for:: 12/29/19 Subjective: cannot talk, on a zoom court call, doing well, ready for discharge Physical Exam (OB) Vital Signs: Temp Pulse Resp BP Pulse Ox 98.0 F 80 16 119/73 100 12/29/19 08:22 12/29/19 07:39 12/29/19 07:39 12/29/19 07:39 12/29/19 07:39 Intake & Output 12/28/19 12/29/19 12/30/19 06:59 06:59 06:59 Intake Total 1000 820 Balance 1000 820 - PIH/Pre-Eclampsia DTR's: 1 + Clonus: Negative Headache: Absent Epigastric Pain: No Visual Changes: No - Dressing Removed: No Incision: Well Approximated Closure Type: Surgical Glue - Maternal Morbidity 59. Maternal Morbidity (serious complications experinced by the mother associated with labor and delivery: None of the above - Lochia Lochia Amount: Scant < 10 ml Lochia Color: Rubra/Red - Abdomen Description: Soft Hernia Present: No Fundal Description: Firm, Midline Fundal Height: u/u - u/2 Objective-Diagnostic Laboratory: 12/26/19 07:26 12/25/19 17:40 Assessment and Plan(PN) - Assessment and Plan (1) Migraine with aura Qualifiers: Status migrainosus presence: without status migrainosus Intractability: not intractable Qualified Code(s): G43.109 - Migraine with aura, not intractable, without status migrainosus Is this a current diagnosis for this admission?: Yes (2) Asthma Qualifiers: Asthma severity: mild Is this a current diagnosis for this admission?: Yes (3) Seizure disorder during in third trimester Is this a current diagnosis for this admission?: Yes (4) 32 weeks gestation of Is this a current diagnosis for this admission?: Yes (5) delivery Is this a current diagnosis for this admission?: Yes (6) Placenta abruption, delivered, current hospitalization Is this a current diagnosis for this admission?: Yes - Time Spent with Patient Time with patient: Less than 15 minutes Medications reviewed and adjusted accordingly: Yes - Disposition Anticipated Discharge Disposition: Home, Self Care Anticipated Discharge Timeframe: within 24 hours
--- NOTE | 2019-12-29 10:19 | PDOC DISCHARGE SUMMARY ---
Impression - Admit/DC Date/PCP Admission Date/Primary Care Provider: 12/25/19 14:54 Discharge Date: 12/29/19 - Discharge Diagnosis (1) Migraine with aura Is this a current diagnosis for this admission?: Yes (2) Asthma Is this a current diagnosis for this admission?: Yes (3) Seizure disorder during in third trimester Is this a current diagnosis for this admission?: Yes (4) 32 weeks gestation of Is this a current diagnosis for this admission?: Yes (5) delivery Is this a current diagnosis for this admission?: Yes (6) Placenta abruption, delivered, current hospitalization Is this a current diagnosis for this admission?: Yes - Additional Information Resuscitation Status: Full Code Discharge Diet: As Tolerated Discharge Activity: Activity As Tolerated, No Lifting Over 10 Pounds, Slowly Increase Activity, No tub bath, Walk Frequently Referrals: ROBERTO COOPER MD [ACTIVE STAFF] - Prescriptions: Oxycodone HCl/Acetaminophen [Percocet 5-325 mg Tablet] 1 tab PO Q4HP PRN #20 tablet PRN Reason: Levetiracetam [Keppra 500 mg Tablet] 750 mg PO Q12 #60 tablet Ibuprofen [Motrin 800 mg Tablet] 800 mg PO Q6 #30 tablet Home Medications: Vits96/Iron Fum/Folic [ Tablet] 1 each PO DAILY 12/25/19 Ibuprofen [Motrin 800 mg Tablet] 800 mg PO Q6 #30 tablet 12/29/19 Levetiracetam [Keppra 500 mg Tablet] 750 mg PO Q12 #60 tablet 12/29/19 Oxycodone HCl/Acetaminophen [Percocet 5-325 mg Tablet] 1 tab PO Q4HP PRN #20 tablet 12/29/19 HPI Gestational Age: 31.6 Admission Note: abruption, + TCH Procedures: Ultrasound Intrapartum Procedure(s): : Low Cervical, Transverse Hospital Course Hospital Course: ? seizure, placed on Keppra, seen by Hospitalist 58. Maternal Morbidity (serious complications experinced by the mother associated with labor and delivery: None of the above Results Laboratory Results: WBC 14.3 10^3/uL (4.0-10.5) H 12/26/19 07:26 RBC 3.70 10^6/uL (3.72-5.28) L 12/26/19 07:26 Hgb 10.9 g/dL (12.0-15.5) L 12/26/19 07:26 Hct 31.1 % (36.0-47.0) L 12/26/19 07:26 MCV 84 fl (80-97) 12/26/19 07:26 MCH 29.4 pg (27.0-33.4) 12/26/19 07:26 MCHC 35.0 g/dL (32.0-36.0) 12/26/19 07:26 RDW 14.9 % (11.5-14.0) H 12/26/19 07:26 Plt Count 192 10^3/uL (150-450) 12/26/19 07:26 Lymph % (Auto) 14.8 % (13-45) 12/25/19 17:40 [place] % (Auto) 2.1 % (3-13) L 12/25/19 17:40 Eos % (Auto) 0.9 % (0-6) 12/25/19 17:40 Baso % (Auto) 0.3 % (0-2) 12/25/19 17:40 Absolute Neuts (auto) 6.6 10^3/uL (1.7-8.2) 12/25/19 17:40 Absolute Lymphs (auto) 1.2 10^3/uL (0.5-4.7) 12/25/19 17:40 Absolute Monos (auto) 0.2 10^3/uL (0.1-1.4) 12/25/19 17:40 Absolute Eos (auto) 0.1 10^3/uL (0.0-0.6) 12/25/19 17:40 Absolute Basos (auto) 0.0 10^3/uL (0.0-0.2) 12/25/19 17:40 Seg Neutrophils % 81.9 % (42-78) H 12/25/19 17:40 PT 13.8 SEC (11.4-15.4) 12/25/19 17:40 INR 1.04 12/25/19 17:40 APTT 29.2 SEC (23.5-35.8) 12/25/19 17:40 Fibrinogen 425 mg/dL (209-497) 12/25/19 17:40 Sodium 133.1 mmol/L (137-145) L 12/25/19 17:40 Potassium 4.3 mmol/L (3.6-5.0) 12/25/19 17:40 Chloride 104 mmol/L (98-107) 12/25/19 17:40 Carbon Dioxide 22 mmol/L (22-30) 12/25/19 17:40 Anion Gap 7 (5-19) 12/25/19 17:40 BUN 4 mg/dL (7-20) L 12/25/19 17:40 Creatinine 0.47 mg/dL (0.52-1.25) L 12/25/19 17:40 Est GFR ( Amer) > 60 (>60) 12/25/19 17:40 Est GFR (MDRD) Non-Af > 60 (>60) 12/25/19 17:40 Glucose 66 mg/dL (75-110) L 12/25/19 17:40 Uric Acid 3.7 mg/dL (2.5-6.2) 12/25/19 14:57 Calcium 8.3 mg/dL (8.4-10.2) L 12/25/19 17:40 Total Bilirubin 0.4 mg/dL (0.2-1.3) 12/25/19 17:40 Direct Bilirubin 0.2 mg/dL (0.0-0.4) 12/25/19 17:40 Neonat Total Bilirubin Not Reportable 12/25/19 17:40 Neonat Direct Bilirubin Not Reportable 12/25/19 17:40 Neonat Indirect Bili Not Reportable 12/25/19 17:40 AST 21 U/L (14-36) 12/25/19 17:40 ALT 14 U/L (<35) 12/25/19 17:40 Alkaline Phosphatase 128 U/L (38-126) H 12/25/19 17:40 Lactate Dehydrogenase 156 U/L (120-246) 12/25/19 14:57 Total Protein 5.3 g/dL (6.3-8.2) L 12/25/19 17:40 Albumin 2.9 g/dL (3.5-5.0) L 12/25/19 17:40 TSH 0.54 uIU/mL (0.47-4.68) 12/25/19 16:36 Urine Color YELLOW 12/25/19 14:16 Urine Appearance CLEAR 12/25/19 14:16 Urine pH 7.0 (5.0-9.0) 12/25/19 14:16 Ur Specific [place] 1.016 12/25/19 14:16 Urine Protein 30 mg/dL (NEGATIVE) H 12/25/19 14:16 Urine Glucose (UA) NEGATIVE mg/dL (NEGATIVE) 12/25/19 14:16 Urine Ketones NEGATIVE mg/dL (NEGATIVE) 12/25/19 14:16 Urine Blood NEGATIVE (NEGATIVE) 12/25/19 14:16 Urine Nitrite NEGATIVE (NEGATIVE) 12/25/19 14:16 Urine Bilirubin NEGATIVE (NEGATIVE) 12/25/19 14:16 Urine Urobilinogen NEGATIVE mg/dL (<2.0) 12/25/19 14:16 Ur Leukocyte Esterase NEGATIVE (NEGATIVE) 12/25/19 14:16 Urine WBC (Auto) 1 /HPF 12/25/19 14:16 Urine RBC (Auto) 7 /HPF 12/25/19 14:16 Squamous Epi Cells Auto <1 /HPF 12/25/19 14:16 Urine Mucus (Auto) FEW /LPF 12/25/19 14:16 Urine Creatinine 156.6 mg/dL (16-327) 12/25/19 14:16 Protein/Creatinin Ratio 0.1 mg/mg (0.0-0.2) 12/25/19 14:16 Urine Total Protein 9.3 mg/dL (<12) 12/25/19 14:16 Urine Ascorbic Acid NEGATIVE (NEGATIVE) 12/25/19 14:16 Epi Cells (Wet Prep) 3+ EPITHELIALS SEEN 12/25/19 14:55 Bacteria (Wet Prep) 4+ BACTERIA SEEN 12/25/19 14:55 Trichomonas (Wet Prep) NO TRICHOMONAS SEEN 12/25/19 14:55 Vaginal WBC 4+ WBCS SEEN 12/25/19 14:55 Vaginal RBC 1+ RBCS SEEN 12/25/19 14:55 Vaginal Yeast NO YEAST SEEN 12/25/19 14:55 Urine Opiates Screen Cancelled 12/25/19 14:16 Urine Opiates Screen NEGATIVE 12/25/19 14:16 Urine Methadone Screen Cancelled 12/25/19 14:16 Urine Methadone Screen NEGATIVE 12/25/19 14:16 Ur Barbiturates Screen Cancelled 12/25/19 14:16 Ur Barbiturates Screen NEGATIVE 12/25/19 14:16 Ur Phencyclidine Scrn Cancelled 12/25/19 14:16 Ur Phencyclidine Scrn NEGATIVE 12/25/19 14:16 Ur Amphetamines Screen Cancelled 12/25/19 14:16 Ur Amphetamines Screen NEGATIVE 12/25/19 14:16 U Benzodiazepines Scrn Cancelled 12/25/19 14:16 U Benzodiazepines Scrn NEGATIVE 12/25/19 14:16 Urine Cocaine Screen Cancelled 12/25/19 14:16 Urine Cocaine Screen NEGATIVE 12/25/19 14:16 U Marijuana (THC) Screen Cancelled 12/25/19 14:16 U Marijuana (THC) Screen UNCONFIRMED POSITIVE 12/25/19 14:16 RPR NONREACTIVE (NONREACTIVE) 12/25/19 14:37 Chlamydia DNA (PCR) NOT DETECTED (NOT DETECT) 12/25/19 14:55 HCV RNA Quant (PCR) HCV Not Detected IU/mL (.) 12/25/19 16:36 HCV RNA (PCR) IU log10 TNP 12/25/19 16:36 Hepatitis C Genotype TNP 12/25/19 16:36 N.gonorrhoeae DNA (PCR) NOT DETECTED (NOT DETECT) 12/25/19 14:55 Blood Type O POSITIVE 12/25/19 14:37 Blood Type Confirm O POSITIVE 12/25/19 14:57 Antibody Screen NEGATIVE 12/25/19 14:37 Crossmatch See Detail 12/25/19 14:37 Impressions: Obstetrics Ultrasound 12/25/19 00:00 IMPRESSION: Living intrauterine gestation. There is an area of slightly increased echogenicity along the anterior margin of the placenta. It is possible that this represents a mature hematoma from an abruption. Follow-up as clinically indicated. Trimester of : Third trimester - 28 weeks to delivery. Head CT 12/25/19 17:05 IMPRESSION: NORMAL BRAIN CT WITHOUT CONTRAST. EVIDENCE OF ACUTE STROKE: NO. Plan Health Concerns: seizure activity, drug abuse Plan of Treatment: f/u with neuro as directed, take PNV's and iron, keppra as Rx Goals: no complications Time Spent: Less than 30 Minutes
[2019-12-29 11:12] VITALS: BP 123/77
[2019-12-29] MEDS: DOCUSATE SODIUM 100 MG CAPSULE PO SCH (11:20)
[2019-12-29] MEDS: PRENATAL VITAMIN W DHA CAPSULE PO SCH (11:20)
[2019-12-29] MEDS: LEVETIRACETAM 500 MG TABLET PO SCH (11:21)
[2019-12-29 14:37] LABS: HGB A2 2.2 % (1.8-3.2); HGB SOLUBILITY RESULT Negative (Negative)
== END 2019-12-29 11:32 | disposition home or self-care (01) | DRG 787 ==
LOC: LC 13:44 → LR 14:54 → 2S 12-26 13:00
PROVIDERS: ADMIT Obstetrics & Gynecology; ATTEND Student in an Organized Health Care Education/Training Program
PROC: 10D00Z1 Extraction of Products of Conception, Low, Open Approach (ICD-10-PCS; principal; 2019-12-25)
DX: O45.93 Premature separation of placenta, unspecified, third trimester (principal); O99.354 Diseases of the nervous system complicating childbirth; O99.324 Drug use complicating childbirth; O72.1 Other immediate postpartum hemorrhage; O99.52 Diseases of the respiratory system complicating childbirth; G43.109 Migraine with aura, not intractable, without status migrainosus; G40.909 Epilepsy, unspecified, not intractable, without status epilepticus; F12.90 Cannabis use, unspecified, uncomplicated; J45.909 Unspecified asthma, uncomplicated; Z88.0 Allergy status to penicillin; Z79.51 Long term (current) use of inhaled steroids; Z37.0 Single live birth; Z86.14 Personal history of Methicillin resistant Staphylococcus aureus infection; Z87.828 Personal history of other (healed) physical injury and trauma; Z91.410 Personal history of adult physical and sexual abuse; Z3A.31 31 weeks gestation of pregnancy
CPT/HCPCS: 1961; 36415; 70450; 76815; 80053; 80307; 80349; 81001; 82570; 83020; 83615; 84156; 84443; 84550; 85025; 85027; 85384; 85610; 85730; 86592; 86850; 86900; 86901; 86920; 87070; 87077; 87081; 87086; 87210; 87491; 87522; 87591; 88307; 94760; 94799; 99140; G0480; J0131; J0456; J0702; J1170; J1885; J2060; J2175; J2210; J2250; J2370; J2405; J2550; J2590; J3010; J3475; J3490

== ENCOUNTER 2020-01-02 05:29 | Emergency (ER) | payer MEDICAID ==
[2020-01-02] MEDS ORDERED: NORMAL SALINE 1000 ML 1,000 ML IV ONE (06:08)
[2020-01-02 06:31] LABS: ABSOLUTE EOSINOPHILS # (AUTO) 0.2 10^3/uL (0.0-0.6); ABSOLUTE LYMPHOCYTES (AUTO) 2.3 10^3/uL (0.5-4.7); ABSOLUTE MONOCYTES (AUTO) 0.6 10^3/uL (0.1-1.4); BASOPHILS % (AUTO) 0.3 % (0-2); EOSINOPHILS % (AUTO) 1.5 % (0-6); HEMATOCRIT 30.5 % (36.0-47.0); HEMOGLOBIN 10.6 g/dL (12.0-15.5); LYMPHOCYTES % (AUTO) 23.2 % (13-45); MEAN CORPUSCULAR HEMOGLOBIN 29.6 pg (27.0-33.4); MEAN CORPUSCULAR HGB CONC 34.7 g/dL (32.0-36.0); MEAN CORPUSCULAR VOLUME 85 fl (80-97); MONOCYTES % (AUTO) 5.8 % (3-13); PLATELET COUNT 296 10^3/uL (150-450); RED BLOOD COUNT 3.57 10^6/uL (3.72-5.28); RED CELL DISTRIBUTION WIDTH 15.3 % (11.5-14.0); SEGMENTED NEUTROPHILS % (AUTO) 69.2 % (42-78); TOTAL CELLS COUNTED % (AUTO) 100 %; WHITE BLOOD COUNT 10.1 10^3/uL (4.0-10.5)
[2020-01-02 06:34] LABS: INTERNATIONAL RATION (INR) 0.94; PROTHROMBIN TIME 12.8 SEC (11.4-15.4)
--- NOTE | 2020-01-02 06:34 | ER Document Report ---
ED General - General Chief Complaint: Vaginal Bleeding Stated Complaint: HEAVY BLEEDING/CSECTION Time Seen by Provider: 01/02/20 06:07 - HPI Notes: Patient is a 24-year-old female, 8 days status post for placental abruption, who presents to the emergency department for evaluation of vaginal bleeding. She was actually upstairs in the hospital, staying with her child in the NICU. She experienced a gush of blood while sleeping, states she jumped immediately in the shower. She has gone through 5 pads in approximately 2 hours. She states that this is all been bright red bleeding. Is really not been associated with any pain. She states that she really was only spotting up until now. She states first was complicated by new onset seizures. She states her blood pressure was normal. She notes that yesterday she developed pitting edema in her legs, which she did not have throughout the course of her . She complains of a mild headache. - Related Data Allergies/Adverse Reactions: Penicillins Allergy (Verified 12/25/19 14:34) Anaphylaxis Home Medications: motrin. seizure med. albuterol. pre mvi Past Medical History - General Information source: Patient - Social History Smoking Status: Never Smoker Chew tobacco use (# tins/day): No Frequency of alcohol use: None Drug Abuse: None - Marijuana use up until 3 weeks ago Family History: Reviewed & Not Pertinent, CAD, DM, Hypertension, Malignancy Patient has homicidal ideation: No Pulmonary Medical History: Reports: Hx Asthma Neurological Medical History: Reports: Hx Migraine - Complex migraines with syncope, Hx Seizures Past Surgical History: Reports: Hx Section Review of Systems - Review of Systems Constitutional: No symptoms reported EENT: No symptoms reported Cardiovascular: No symptoms reported Respiratory: No symptoms reported Gastrointestinal: No symptoms reported Genitourinary: No symptoms reported Female Genitourinary: See HPI Musculoskeletal: See HPI Skin: No symptoms reported Neurological/Psychological: See HPI -: Yes All other systems reviewed and negative Physical Exam - Vital signs Vitals: Temp Pulse Resp BP Pulse Ox 98.3 F 87 16 142/93 H 98 01/02/20 05:38 01/02/20 05:38 01/02/20 05:38 01/02/20 05:38 01/02/20 05:38 - Notes Notes: Vital signs reviewed, please refer to chart. Head is normocephalic, atraumatic. Pupils equal round, reactive to light. Neck is supple without meningismus. Heart is regular rate and rhythm. Lungs are clear to auscultation bilaterally. Abdomen is soft, nontender, normoactive bowel sounds throughout. Well-healing surgical wound noted in the low Pfannenstiel position, approximated with Steri- Strips. No signs of induration, drainage, dehiscence. Extremities without cyanosis, clubbing. 1+ pitting pretibial edema down into the feet and ankles. Posterior calves are nontender. Peripheral pulses are equal. Skin is warm and dry. Patient is awake, alert, oriented x3. Cranial nerves II - XII are grossly intact without focal neurological deficits. Strength is plus 5 out of 5 bilateral upper and lower extremities. Sensation is intact. Reflexes symmetrical. Intact [id number], rapid alternating movements, heel-to- holm. Pelvic exam performed with HUGO Nunes, present. Normal external genitalia. Moderate amount of blood noted. Cervix is visualized. It is closed. Small amount of lochia/blood noted at cervical os. This was able to be cleared away, no active hemorrhaging. No other visible lesions. Course - Re-evaluation Re-evalutation: 01/02/20 06:33 Patient presents to the emergency department for evaluation of heavy vaginal bleeding status post for placental abruption. Currently she is mildly hypertensive with a blood pressure of 141/95. She does have some edema as well. She states that currently her vaginal bleeding is slowing. Will order basic blood work, coags, type and screen. She is given IV fluids. We will order transvaginal ultrasound and evaluate with pelvic following this study. Patient is currently stable, denies any pain. We will continue to monitor. 01/02/20 06:[address] Alicea, who is familiar with this patient. She gives me a more detailed history of the patient's recent medical issues. She did have a placental abruption at 31 and 6. She had a . There was approximately 900 mL of blood loss. She started having some blood pressure problems after delivery. She was placed on magnesium for 24 hours. She was also suffering from what were reported as "complex atypical migraines." She was having abnormal activity, concerning for almost absent seizures, which were evaluated by the internal medicine service as well. The patient was started on Keppra. We discussed this patient's edema, which is new, as well as the headache. She recommends treatment with Tylenol. She states if her headache improves, the patient may be treated with Lasix and Procardia with close outpatient follow-up. Patient's LFTs are normal at this time. Will order Tylenol, continue to watch pressure, and evaluate for response. 01/02/20 09:02 Patient's headache has entirely resolved. Her blood pressure has improved, current blood pressure 130s over 90s. I will contact OB, but will likely administer a dose of Lasix and have her follow-up on Saturday in regards to her issues. She is to return to the ED with worsening. 01/02/20 09:[address] Martínez about this patient. She states normally she would give Lasix, but as the patient is pumping to try and breast-feed she is concerned that this could dry her milk. We discussed her blood pressures and other findings, at this point she would not recommend any further intervention. Patient is stable and will be discharged. - Vital Signs Vital signs: Temp Pulse Resp BP Pulse Ox 98.3 F 87 18 129/84 H 99 01/02/20 05:42 01/02/20 05:38 01/02/20 08:01 01/02/20 08:01 01/02/20 08:01 - Laboratory Result Diagrams: 01/02/20 06:08 01/02/20 06:08 Laboratory results interpreted by me: 01/02/20 01/02/20 01/02/20 06:08 06:08 06:56 RBC 3.57 L Hgb 10.6 L Hct 30.5 L RDW 15.3 H Chloride 111 H Alkaline Phosphatase 135 H Urine Protein 100 H Urine Ketones TRACE H Urine Blood LARGE H Ur Leukocyte Esterase TRACE H - Diagnostic Test Radiology reviewed: Reports reviewed Radiology results interpreted by me: 01/02/20 09:03 Transvaginal US 01/02/20 06:28 IMPRESSION: Thickened and heterogenous endometrium likely containing an intrauterine blood clot. No areas of increased vascular flow to suggest retained products of conception. Discharge - Discharge Clinical Impression: Vaginal bleeding, Lower extremity edema Condition: Stable Disposition: HOME, SELF-CARE Instructions: Vaginal Bleeding ([facility]) Additional Instructions: Continue your home medications as previously prescribed. Please stay well- hydrated. Follow-up on Saturday as scheduled. If you develop continued heavy bleeding, chest pressure, worsening headache, or any other new or concerning symptoms, please return immediately to the emergency department for evaluation.
[2020-01-02 06:35] LABS: PARTIAL THROMBOPLASTIN TIME 29.9 SEC (23.5-35.8)
[2020-01-02 06:48] LABS: ALBUMIN 3.5 g/dL (3.5-5.0); ALKALINE PHOSPHATASE 135 U/L (38-126); ANION GAP 6 (5-19); ASPARTATE AMINO TRANSFERASE 19 U/L (14-36); BILIRUBIN,DIRECT 0.3 mg/dL (0.0-0.4); BILIRUBIN,TOTAL 0.4 mg/dL (0.2-1.3); BLOOD UREA NITROGEN 16 mg/dL (7-20); CALCIUM 8.7 mg/dL (8.4-10.2); CARBON DIOXIDE 25 mmol/L (22-30); CHLORIDE 111 mmol/L (98-107); GLUCOSE 83 mg/dL (75-110); POTASSIUM 4.2 mmol/L (3.6-5.0); TOTAL PROTEIN 6.4 g/dL (6.3-8.2)
[2020-01-02] MEDS ORDERED: ACETAMINOPHEN 325 MG TABLET PO ONE (06:51)
[2020-01-02 07:17] LABS: APPEARANCE,URINE CLOUDY; BILIRUBIN,URINE NEGATIVE (NEGATIVE); COLOR,URINE RED; GLUCOSE, URINE NEGATIVE (NEGATIVE); KETONES,URINE TRACE mg/dL (NEGATIVE); LEUKOCYTE ESTERASE,URINE TRACE (NEGATIVE); NITRITE,URINE NEGATIVE (NEGATIVE); PROTEIN,URINE 100 mg/dL (NEGATIVE); URINE SPECIFIC GRAVITY 1.024; UROBILINOGEN,URINE NEGATIVE mg/dL (<2.0)
--- NOTE | 2020-01-02 08:00 | RADIOLOGY REPORT (SQ) ---
COMPLETED DATE/TME: 01/02/2020 06:28 EXAM: Pelvic ultrasound. INDICATION: Vaginal bleeding seven days post . TECHNIQUE: Grayscale and Doppler sonogram of the pelvis. Transvaginal technique was used for better evaluation of the pelvic viscera. COMPARISON: 12/25/2019. FINDINGS: Uterus: Anteverted. Measures 13.4 x 9.7 x 9.0 cm. uterus. Endometrial stripe: Appears heterogenous and measures up to 6.9 cm in thickness. No areas of increased vascular flow within the endometrium. Right ovary: Not uniquely identified. Left ovary: Not uniquely identified Other: Free fluid: None. IMPRESSION: Thickened and heterogenous endometrium likely containing an intrauterine blood clot. No areas of increased vascular flow to suggest retained products of conception.
[2020-01-02 08:42] VITALS: BP 129/84
== END 2020-01-02 09:16 | disposition home or self-care (01) ==
LOC: ER 05:29
DX: O72.2 Delayed and secondary postpartum hemorrhage (principal); O14.95 Unspecified pre-eclampsia, complicating the puerperium; O90.89 Other complications of the puerperium, not elsewhere classified; R56.9 Unspecified convulsions; R51.9 Headache, unspecified; O99.53 Diseases of the respiratory system complicating the puerperium; J45.909 Unspecified asthma, uncomplicated; Z79.899 Other long term (current) drug therapy; Z79.1 Long term (current) use of non-steroidal anti-inflammatories (NSAID); Z98.890 Other specified postprocedural states; Z87.892 Personal history of anaphylaxis; Z88.0 Allergy status to penicillin
CPT/HCPCS: 99285; 96360; 86900; 86901; 36415; 86850; 85025; 85610; 85730; 80053; 81001; 76830; J3490; J7030

== ENCOUNTER 2020-01-10 21:41 | Emergency (ER) | payer MEDICAID ==
--- NOTE | 2020-01-10 21:55 | ER Document Report ---
ED Medical Screen (RME) - General Chief Complaint: Headache Stated Complaint: HEADACHE Time Seen by Provider: 01/10/20 21:47 Mode of Arrival: Wheelchair Notes: 24-year-old female presents to ED for complaint of headache x2 hours. She states she took ibuprofen 800 mg an hour ago. She states she does have a referral for neurologist for her migraines. She states that she just had a baby 3 weeks ago. She is on Keppra for her seizures she also has asthmatic. She does have a history of migraines but she states she fell multiple times throughout her and she thinks this migraine is different than her norm al migraines. She is breast-feeding her baby. Her baby is a 30-week gestation baby and in ICU at the hospital now. She was upstairs with the baby when she developed this headache. She states that she used to only get migraines when her blood pressure will spike but her blood pressure has been under control and she still getting the headaches. She states she had 1 2 days ago and then 1 again today. I have greeted and performed a rapid initial assessment of this patient. A comprehensive ED assessment and evaluation of the patient, analysis of test results and completion of medical decision making process will be conducted by an additional ED providers. - Related Data Allergies/Adverse Reactions: Penicillins Allergy (Verified 12/25/19 14:34) Anaphylaxis Home Medications: keppra. . motrin Past Medical History - Social History Chew tobacco use (# tins/day): No Frequency of alcohol use: None Drug Abuse: None Pulmonary Medical History: Reports: Hx Asthma Neurological Medical History: Reports: Hx Migraine - Complex migraines with syncope, Hx Seizures Past Surgical History: Reports: Hx Section Physical Exam - Vital signs Vitals: Temp Pulse Resp BP Pulse Ox 98.9 F 90 18 119/78 100 01/10/20 21:47 01/10/20 21:47 01/10/20 21:47 01/10/20 21:47 01/10/20 21:47 Course - Vital Signs Vital signs: Temp Pulse Resp BP Pulse Ox 98.9 F 90 18 119/78 100 01/10/20 21:49 01/10/20 21:47 01/10/20 21:47 01/10/20 21:47 01/10/20 21:47
[2020-01-10] MEDS ORDERED: HYDROMORPHONE HCL INJ/PF 2 MG/ML AMPULE IV ONE (22:07)
--- NOTE | 2020-01-10 22:11 | ER Document Report ---
ED Headache - General Chief Complaint: Headache Stated Complaint: HEADACHE Time Seen by Provider: 01/10/20 21:47 Mode of Arrival: Wheelchair Information source: Patient Notes: [facility] Discharge Date: 12/29/19 - Discharge Diagnosis (1) Migraine with aura Is this a current diagnosis for this admission?: Yes (2) Asthma Is this a current diagnosis for this admission?: Yes (3) Seizure disorder during in third trimester Is this a current diagnosis for this admission?: Yes (4) 32 weeks gestation of Is this a current diagnosis for this admission?: Yes (5) delivery Is this a current diagnosis for this admission?: Yes (6) Placenta abruption, delivered, current hospitalization Is this a current diagnosis for this admission?: Yes - Additional Information Resuscitation Status: Full Code Discharge Diet: As Tolerated Discharge Activity: Activity As Tolerated, No Lifting Over 10 Pounds, Slowly Increase Activity, No tub bath, Walk Frequently Referrals: ROBERTO COOPER MD [ACTIVE STAFF] - Prescriptions: Oxycodone HCl/Acetaminophen [Percocet 5-325 mg Tablet] 1 tab PO Q4HP PRN #20 tablet PRN Reason: Levetiracetam [Keppra 500 mg Tablet] 750 mg PO Q12 #60 tablet Ibuprofen [Motrin 800 mg Tablet] 800 mg PO Q6 #30 tablet Home Medications: Vits96/Iron Fum/Folic [ Tablet] 1 each PO DAILY 12/25/19 Ibuprofen [Motrin 800 mg Tablet] 800 mg PO Q6 #30 tablet 12/29/19 Levetiracetam [Keppra 500 mg Tablet] 750 mg PO Q12 #60 tablet 12/29/19 Oxycodone HCl/Acetaminophen [Percocet 5-325 mg Tablet] 1 tab PO Q4HP PRN #20 tablet 12/29/19 HPI Gestational Age: 31.6 Admission Note: abruption, + T[facility] Procedures: Ultrasound Intrapartum Procedure(s): : Low Cervical, Transverse Hospital Course Hospital Course: ? seizure, placed on Keppra, seen by Hospitalist 59. Maternal Morbidity (serious complications experinced by the mother associated with labor and delivery: None of the above ED Medical Screen (Onel notes) - General Chief Complaint: Headache Stated Complaint: HEADACHE Time Seen by Provider: 01/10/20 21:47 Mode of Arrival: Wheelchair Notes: 24-year-old female presents to ED for complaint of headache x2 hours. She states she took ibuprofen 800 mg an hour ago. She states she does have a referral for neurologist for her migraines. She states that she just had a baby 3 weeks ago. She is on Keppra for her seizures she also has asthmatic. She does have a history of migraines but she states she fell multiple times throughout her and she thinks this migraine is different than her normal migraines. She is breast-feeding her baby. Her baby is a 30-week gestation baby and in ICU at the hospital now. She was upstairs with the baby when she developed this headache. She states that she used to only get migraine s when her blood pressure will spike but her blood pressure has been under control and she still getting the headaches. She states she had 1 2 days ago and then 1 again today. MY NOTES 24-year-old black female [place] her child was born at 31 weeks; mother is staying with baby. Patient reports she is having severe migraine headache pointing to her frontal area and to her occipital area of her head. Patient has positive photophobia and sonophobia. She reports she had heavy bleeding during her spontaneous vaginal delivery. She denies any nuchal rigidity. She denies any skin rash. She denies any chest pain or shortness of breath. She denies any fever or chills or COVID-19 symptoms. TRAVEL OUTSIDE OF THE [place] IN LAST 30 DAYS: No - HPI Patient complains to provider of: "Migraine" Onset: Just prior to arrival Onset was: Abrupt Timing: Still present Quality of pain: Achy Severity: Moderate Pain Level: 3 Preceding symptoms: Visual disturbance - Related Data Allergies/Adverse Reactions: Penicillins Allergy (Verified 12/25/19 14:34) Anaphylaxis Home Medications: keppra. . motrin Past Medical History - Social History Smoking Status: Never Smoker Chew tobacco use (# tins/day): No Frequency of alcohol use: None Drug Abuse: None Family History: Reviewed & Not Pertinent, CAD, DM, Hypertension, Malignancy Patient has homicidal ideation: No Pulmonary Medical History: Reports: Hx Asthma Neurological Medical History: Reports: Hx Migraine - Complex migraines with syncope, Hx Seizures Past Surgical History: Reports: Hx Section Review of Systems - Review of Systems Constitutional: See HPI, Malaise, Weakness, Recent illness EENT: No symptoms reported Cardiovascular: No symptoms reported Respiratory: No symptoms reported Gastrointestinal: No symptoms reported Genitourinary: No symptoms reported Female Genitourinary: No symptoms reported Musculoskeletal: No symptoms reported Skin: No symptoms reported Hematologic/Lymphatic: No symptoms reported Neurological/Psychological: See HPI, Weakness, Headaches Physical Exam - Vital signs Vitals: Temp Pulse Resp BP Pulse Ox 98.9 F 90 18 119/78 100 01/10/20 21:47 01/10/20 21:47 01/10/20 21:47 01/10/20 21:47 01/10/20 21:47 Interpretation: Normal - General General appearance: Appears well, Alert - HEENT Head: Normocephalic, Atraumatic Eyes: Normal Pupils: PERRL, Dilated Mouth/Lips: Normal Mucous membranes: Normal Pharynx: Normal Neck: Normal - Respiratory Respiratory status: No respiratory distress Chest status: Nontender Breath sounds: Normal Chest palpation: Normal - Cardiovascular Rhythm: Regular Heart sounds: Normal auscultation Murmur: No - Abdominal Inspection: Normal Distension: No distension Bowel sounds: Normal Tenderness: Nontender Organomegaly: No organomegaly - Rectal Hemorrhoids: Other - defer - Genitourinary Bimanuel exam: Other - defer - Back Back: Normal, Nontender - Extremities General upper extremity: Normal inspection, Nontender, Normal color, Normal ROM, Normal temperature General lower extremity: Normal inspection, Nontender, Normal color, Normal ROM, Normal temperature, Normal weight bearing. No: Ravin's sign - Neurological Neuro grossly intact: Yes Cognition: Normal Orientation: AAOx4 Dannie Coma Scale Eye Opening: Spontaneous Dannie Coma Scale Verbal: Oriented Dannie Coma Scale Motor: Obeys Commands Dannie Coma Scale Total: 15 Speech: Normal Motor strength normal: LUE, RUE, LLE, RLE Sensory: Normal - Psychological Associated symptoms: Normal affect, Normal mood - Skin Skin Temperature: Warm Skin Moisture: Dry Skin Color: Normal Course - Vital Signs Vital signs: Temp Pulse Resp BP Pulse Ox 98.9 F 90 18 119/78 100 01/10/20 21:49 01/10/20 21:47 01/10/20 21:47 01/10/20 21:47 01/10/20 21:47 - Laboratory Result Diagrams: 01/10/20 22:23 01/10/20 22:23 Laboratory results interpreted by me: 01/10/20 01/10/20 22:23 22:23 WBC 10.6 H Hgb 11.2 L Hct 33.7 L RDW 15.5 H Chloride 108 H Carbon Dioxide 21 L Alkaline Phosphatase 148 H - Diagnostic Test Radiology reviewed: Reports reviewed Critical Care Note - Critical Care Note Comments: I advised patient of her normal labs and her normal CT of head Discharge - Discharge Clinical Impression: Migraine with aura Qualifiers: Status migrainosus presence: with status migrainosus Intractability: not intractable Qualified Code(s): G43.101 - Migraine with aura, not intractable, with status migrainosus Condition: Good Disposition: HOME, SELF-CARE Additional Instructions: Follow-up with personal doctor or with your neurologist about your migraine headaches. Return to ER as needed encourage fluids sleep in dark room if po ssible
[2020-01-10] MEDS ORDERED: PROCHLORPERAZINE EDISYLATE INJ 10 MG/2 ML VIAL IV ONE (22:23)
[2020-01-10] MEDS ORDERED: KETOROLAC TROMETHAMINE INJ/PF 30 MG/1 ML SDV IV ONE (22:23)
[2020-01-10 22:39] LABS: ABSOLUTE BASOPHILS # (AUTO) 0.1 10^3/uL (0.0-0.2); ABSOLUTE EOSINOPHILS # (AUTO) 0.4 10^3/uL (0.0-0.6); ABSOLUTE LYMPHOCYTES (AUTO) 2.9 10^3/uL (0.5-4.7); ABSOLUTE MONOCYTES (AUTO) 0.7 10^3/uL (0.1-1.4); ABSOLUTE NEUT (AUTO) 6.6 10^3/uL (1.7-8.2); BASOPHILS % (AUTO) 0.8 % (0-2); EOSINOPHILS % (AUTO) 3.6 % (0-6); HEMATOCRIT 33.7 % (36.0-47.0); HEMOGLOBIN 11.2 g/dL (12.0-15.5); MEAN CORPUSCULAR HEMOGLOBIN 28.7 pg (27.0-33.4); MEAN CORPUSCULAR HGB CONC 33.2 g/dL (32.0-36.0); MEAN CORPUSCULAR VOLUME 86 fl (80-97); MONOCYTES % (AUTO) 6.3 % (3-13); PLATELET COUNT 317 10^3/uL (150-450); RED CELL DISTRIBUTION WIDTH 15.5 % (11.5-14.0); SEGMENTED NEUTROPHILS % (AUTO) 62.3 % (42-78); TOTAL CELLS COUNTED % (AUTO) 100 %; WHITE BLOOD COUNT 10.6 10^3/uL (4.0-10.5)
--- NOTE | 2020-01-10 23:08 | RADIOLOGY REPORT (SQ) ---
EXAM DESCRIPTION: CT HEAD WITHOUT IV CONTRAST COMPLETED DATE/TME: 01/10/2020 22:06 CLINICAL HISTORY: H[facility]MOND s/p delivery COMPARISON: 12/24/2019 TECHNIQUE: Axial CT of the head obtained from the skull apex to the skull base without contrast. FINDINGS: No acute intracranial hemorrhage identified. No mass, mass effect, shift of the midline, abnormal extra-axial fluid collection or CT evidence of acute ischemic change identified. The ventricular system is unremarkable. No acute abnormalities of the supratentorial white matter, basal ganglia, cerebellum, or brainstem. The visualized paranasal sinuses and the mastoid air cells are relatively well aerated. No skull fracture identified. Visualized orbits and globes are unremarkable. Stable appearance of the nasal bones. IMPRESSION: 1. No acute intracranial abnormality identified. This exam was performed according to our departmental dose-optimization program, which includes automated exposure control, adjustment of the mA and/or kV according to patient size and/or use of iterative reconstruction technique.
[2020-01-10 23:10] LABS: ALKALINE PHOSPHATASE 148 U/L (38-126); ANION GAP 11 (5-19); ASPARTATE AMINO TRANSFERASE 19 U/L (14-36); BILIRUBIN,TOTAL 0.3 mg/dL (0.2-1.3); BLOOD UREA NITROGEN 18 mg/dL (7-20); CARBON DIOXIDE 21 mmol/L (22-30); CHLORIDE 108 mmol/L (98-107); GLUCOSE 77 mg/dL (75-110); POTASSIUM 4.3 mmol/L (3.6-5.0); TOTAL PROTEIN 7.2 g/dL (6.3-8.2)
[2020-01-11 00:10] VITALS: BP 128/68
[2020-01-11 00:23] LABS: APPEARANCE,URINE CLOUDY; BILIRUBIN,URINE NEGATIVE (NEGATIVE); COLOR,URINE YELLOW; GLUCOSE, URINE NEGATIVE (NEGATIVE); KETONES,URINE NEGATIVE (NEGATIVE); LEUKOCYTE ESTERASE,URINE SMALL (NEGATIVE); NITRITE,URINE NEGATIVE (NEGATIVE); PROTEIN,URINE 100 mg/dL (NEGATIVE); URINE SPECIFIC GRAVITY 1.034; UROBILINOGEN,URINE NEGATIVE mg/dL (<2.0)
== END 2020-01-11 00:05 | disposition home or self-care (01) ==
LOC: ER 21:41
DX: G43.101 Migraine with aura, not intractable, with status migrainosus (principal); J45.909 Unspecified asthma, uncomplicated; R53.1 Weakness; Z88.0 Allergy status to penicillin
CPT/HCPCS: 99285; 96374; 96375; 36415; 85025; 80053; 81001; 70450; J1885; J0780